=== PATIENT | male | born 1995 | race Hispanic/Latino ===

== ENCOUNTER 2017-10-07 14:13 | Emergency (ER) | payer OTHER | END 2017-10-07 15:49 | disposition home or self-care (01) | LOC: EDH 14:13 | DX: J06.9 Acute upper respiratory infection, unspecified (principal) | CPT/HCPCS: 71045 ==

== ENCOUNTER 2018-06-29 13:12 | Emergency (ER) | payer OTHER | END 2018-06-29 13:47 | disposition home or self-care (01) | LOC: EDH 13:12 | DX: J06.9 Acute upper respiratory infection, unspecified (principal) | CPT/HCPCS: 99281 ==